=== PATIENT | female | born 1995 | race Caucasian/White ===

== ENCOUNTER 2017-04-26 12:17 | Emergency (ER) | payer OTHER ==
[~2017-04-26] VITALS: Ht 177.8 cm; Wt 92.1 kg
[~2017-04-26 12:17] MED LIST: BCPILLS PO
[2017-04-26 12:19] VITALS: Ht 177.8 cm; Wt 92.1 kg
[2017-04-26] MEDS ORDERED: SODIUM CHLORIDE 0.9% 1000ML 1,000 ML IV STA (12:38)
[2017-04-26 13:18] LABS: BASO % 0.1 %; BASO ABS # 0.01 K/uL (0-0.2); COMPLETE YES; HEMATOCRIT 35.3 % (37-47); IG% 0.1 %; LYMPH ABS # 1.02 K/uL (1.2-3.4); MEAN CELL VOLUME 83.5 fL (80-100); MEAN CORPUSCULAR HEMOGLOBIN 28.1 pg (25-34); MEAN CORPUSCULAR HGB CONC 33.7 g/dl (32-36); MEAN PLATELET VOLUME 9.7 fL (7.4-10.4); MONO % 9.7 %; NEUT % 77.1 %; PLATELET COUNT 233 K/uL (130-400); RED BLOOD COUNT 4.23 M/uL (4.2-5.4); WHITE BLOOD COUNT 7.83 K/uL (4.8-10.8)
--- NOTE | 2017-04-26 13:19 | EMERGENCY ROOM VISIT NOTE ---
History Report prepared by Kofi: Remy Guardado Under the Supervision of: Dr. Yunior Allen M.D. First contact with patient: 12:25 Chief Complaint: FLANK PAIN Stated Complaint: SIDE AND CHEST PAIN- SEVERE History of Present Illness The patient is a 21 year old female who presents to the Emergency Room with complaints of constant bilateral flank pain in her lower ribs that began two days ago in the setting of on and off pain for 2 years. She rates her pain a 2/ 10 in severity. She still has her gallbladder. The patient has a history of chest/upper abdominal pain associated with eating. However, it has never been this bad. Her pain is described as intermittent sharp pains and aches in the past, but it has been continuous recently. She had similarly severe symptoms 2 year ago. Her symptoms are exacerbated with eating or drinking. She was nauseated earlier this morning, but not currently. She notes that she felt "nails" in her mid chest yesterday but not currently. She denies any vomiting or abnormal urinary symptoms as well. Reports feverishness/chills. She is currently on control. Source of History: patient Onset: two days ago Position: other (Bilateral flank) Symptom Intensity: 2/10 Quality: ache, sharp Timing: intermittent Modifying Factors (Worsening): eating, drinking Associated Symptoms: + fevers, No nausea, No vomiting Review of Systems See HPI for pertinent positives and negatives. A total of ten systems were reviewed and were otherwise negative. Past Medical & Surgical Medical Problems: (1) Chronic back pain Family History Blood clots Social History Smoking Status: Never Smoker Smokeless Tobacco Use: No Drug Use: none Marital Status: single Occupation Status: student Current/Historical Medications Scheduled Control Pills ( Control Pills), 1 TAB PO DAILY Ondasetron Odt (Zofran Odt), 4 MG SL Q6H Scheduled PRN Famotidine (Pepcid), 20 MG PO BID PRN for Pain Allergies Coded Allergies: No Known Allergies (Unverified , 04/26/17) Physical Exam Vital Signs Date Time Temp Pulse Resp B/P (MAP) Pulse Ox O2 Delivery O2 Flow Rate FiO2 04/26/17 18:34 37.8 107 18 122/63 99 04/26/17 18:10 37.8 04/26/17 16:19 102 18 126/72 99 04/26/17 14:05 78 16 148/76 96 Room Air 04/26/17 12:19 37.8 110 17 122/72 98 Room Air Physical Exam GENERAL: Awake, alert, well-appearing, in no distress HENT: Normocephalic, atraumatic. Oropharynx with dry MM otherwise unremarkable. EYES: Normal conjunctiva. Sclera non-icteric. NECK: Supple. No nuchal rigidity. FROM. No JVD. RESPIRATORY: Clear to auscultation. CARDIAC: Regular rate, normal rhythm. Extremities warm and well perfused. Pulses equal. ABDOMEN: Soft, non-distended. No tenderness to palpation. No rebound or guarding. No masses. RECTAL: Deferred. MUSCULOSKELETAL: Chest examination reveals no tenderness. The back is symmetrical on inspection without obvious abnormality. There is no CVA tenderness to palpation. No joint edema. LOWER EXTREMITIES: Calves are equal size bilaterally and non-tender. No edema. No discoloration. NEURO: Normal sensorium. No sensory or motor deficits noted. SKIN: No rash or jaundice noted. Medical Decision & Procedures ER Provider Diagnostic Interpretation: Radiology results as stated below per my review and radiologist interpretation: CHEST ONE VIEW PORTABLE CLINICAL HISTORY: Chest pain. COMPARISON STUDY: Chest radiograph May 07, 2015. FINDINGS: Lung volumes are normal. No pneumothorax or pleural effusion is present. Pulmonary vascularity is normal. Cardiomediastinal silhouette is normal. The appearance of the chest is unchanged. No consolidation is identified. IMPRESSION: No acute cardiopulmonary findings. Electronically signed by: Bashir Morales M.D. 04/26/2017 1:53 PM Dictated Date/Time: 04/26/2017 1:52 PM CHEST CTA for PULMONARY ARTERIES CT DOSE: 293.60 mGy.cm HISTORY: Atypical chest pain. TECHNIQUE: Multiaxial CT images of the chest were performed following the intravenous administration of contrast to evaluate the pulmonary arteries. Maximal intensity projection images were also obtained. A dose lowering technique was utilized adhering to the principles of ALARA. COMPARISON STUDY: None. FINDINGS: There is a normal caliber thoracic aorta with no evidence for dissection. There is no evidence for pulmonary embolus. No pleural effusions. No pneumothorax. The liver and spleen are unremarkable. No lymphadenopathy. A single mildly enlarged distal left paraesophageal lymph node measuring 12 x 9 mm. The central airways are patent. The lungs are clear. IMPRESSION: No evidence for pulmonary embolus. A single mildly enlarged left paraesophageal lymph node. This is of uncertain clinical significance. Electronically signed by: Cecilio Irby M.D. 04/26/2017 3:39 PM Dictated Date/Time: 04/26/2017 3:30 PM Laboratory Results 04/26/17 13:00 Red Blood Count 4.23, Mean Corpuscular Volume 83.5, Mean Corpuscular Hemoglobin 28.1, Mean Corpuscular Hemoglobin Concent 33.7, Mean Platelet Volume 9.7, Neutrophils (%) (Auto) 77.1, Lymphocytes (%) (Auto) 13.0, Monocytes (%) (Auto) 9.7, Eosinophils (%) (Auto) 0.0, Basophils (%) (Auto) 0.1, Neutrophils # (Auto) 6.03, Lymphocytes # (Auto) 1.02, Monocytes # (Auto) 0.76, Eosinophils # (Auto) 0.00, Basophils # (Auto) 0.01 04/26/17 13:00 Test 04/26/17 13:00 04/26/17 13:25 04/26/17 13:30 White Blood Count 7.83 K/uL (4.8-10.8) Red Blood Count 4.23 M/uL (4.2-5.4) Hemoglobin 11.9 g/dL (12.0-16.0) Hematocrit 35.3 % (37-47) Mean Corpuscular Volume 83.5 fL (80-100) Mean Corpuscular Hemoglobin 28.1 pg (25-34) Mean Corpuscular Hemoglobin Concent 33.7 g/dl (32-36) Platelet Count 233 K/uL (130-400) Mean Platelet Volume 9.7 fL (7.4-10.4) Neutrophils (%) (Auto) 77.1 % Lymphocytes (%) (Auto) 13.0 % Monocytes (%) (Auto) 9.7 % Eosinophils (%) (Auto) 0.0 % Basophils (%) (Auto) 0.1 % Neutrophils # (Auto) 6.03 K/uL (1.4-6.5) Lymphocytes # (Auto) 1.02 K/uL (1.2-3.4) Monocytes # (Auto) 0.76 K/uL (0.11-0.59) Eosinophils # (Auto) 0.00 K/uL (0-0.5) Basophils # (Auto) 0.01 K/uL (0-0.2) RDW Standard Deviation 42.1 fL (36.4-46.3) RDW Coefficient of Variation 13.9 % (11.5-14.5) Immature Granulocyte % (Auto) 0.1 % Immature Granulocyte # (Auto) 0.01 K/uL (0.00-0.02) D-Dimer 870 ug/L FEU (0-500) Anion Gap 10.0 mmol/L (3-11) Est Creatinine Clear Calc Drug Dose 127.3 ml/min Estimated GFR () 111.9 Estimated GFR (Non- 96.6 BUN/Creatinine Ratio 9.8 (10-20) Calcium Level 8.8 mg/dl (8.5-10.1) Total Bilirubin 0.4 mg/dl (0.2-1) Direct Bilirubin mg/dl (0-0.2) Aspartate Amino Transf (AST/SGOT) 24 U/L (15-37) Alanine Aminotransferase (ALT/SGPT) 15 U/L (12-78) Alkaline Phosphatase 59 U/L (45-117) Total Protein 7.8 gm/dl (6.4-8.2) Albumin 3.3 gm/dl (3.4-5.0) Lipase 383 U/L (73-393) Chemistry Specimen Hemolysis Urine Color YELLOW Urine Appearance CLEAR (CLEAR) Urine pH 6.5 (4.5-7.5) Urine Specific [place] 1.022 (1.000-1.030) Urine Protein NEG (NEG) Urine Glucose (UA) NEG (NEG) Urine Ketones NEG (NEG) Urine Occult Blood TRACE (NEG) Urine Nitrite NEG (NEG) Urine Bilirubin NEG (NEG) Urine Urobilinogen NEG (NEG) Urine Leukocyte Esterase SMALL (NEG) Urine WBC (Auto) 5-10 /hpf (0-5) Urine RBC (Auto) 0-4 /hpf (0-4) Urine Hyaline Casts (Auto) 1-5 /lpf (0-5) Urine Epithelial Cells (Auto) >30 /lpf (0-5) Urine Bacteria (Auto) NEG (NEG) Urine Test NEG (NEG) Influenza Type A (RT-PCR) Neg for Influ A (NEG) Influenza Type A Antigen Neg for Influ A (NEG) Influenza Type B Antigen Neg for Influ B (NEG) Influenza Type B (RT-PCR) Neg for Influ B (NEG) Laboratory results reviewed by me Medications Administered Medications (Trade) Dose Ordered Sig/Kalpesh Route Start Time Stop Time Status Last Admin Dose Admin Sodium Chloride 1,000 ml @ 999 mls/hr Q1H1M STAT IV 04/26/17 12:38 04/26/17 13:38 DC 04/26/17 13:54 999 MLS/HR ED Course 1225: The patient was evaluated in room A9B. A complete history and physical exam was performed. 1238: Ordered Sodium Chloride 1000 ml @ 999 mls/hr IV 1247: I performed a bedside US at this time. It showed no pericholecystic fluid or gallstones. 1800: I reevaluated the patient. Discussed results and discharge instructions: She verbalized understanding and agreement. The patient is ready for discharge. Medical Decision I reviewed the patient's past medical history, medications, and the nursing notes as described above. Differential diagnoses include PNA, Bronchitis, Gastritis, Biliary etiology, PE , pericarditis, muscular strain, UTI, Pyelonephritis The patient is 21 y/o woman with pmhx of chronic back pain x 2 years who presents to the ED with c/o of persistence of this pain and single 1 minute episode of CP when ambulating yesterday per HPI. On arrival the patient is well appearing, afebrile with temp 37.8, VSS. Denying any sx in ED. EKG unremarkable with no OH depression or CARLY or signs of ischemia otherwise, thus pericarditis unlikely. Moreover patient has no cardiac risk factor making ACS not likely. D- dimer + in setting of OCP use. CT-PE done and negative for PE or other emergent findings otherwise. Single enlarge LN is nonspecific. Labs otherwise unremarkable. Findings d/w patient and a mother and reassurance that no signs of emergent process were identified at this time. Unclear cause of patient's sx , which have a peculiar pattern of b/l flank pain with eating and drinking. Sx possibly 2/2 muscular strain, gastritis, or early viral syndrome. Findings and plan for follow-up d/w patient and mother. Patient agreeable and d/c'd per discharge instructions. Medication Reconcilliation Current Medication List: was personally reviewed by me Blood Pressure Screening Patient's blood pressure: Normal blood pressure Blood pressure disposition: Did not require urgent referral Impression Primary Impression: Bilateral flank pain Scribe Attestation The scribe's documentation has been prepared under my direction and personally reviewed by me in its entirety. I confirm that the note above accurately reflects all work, treatment, procedures, and medical decision making performed by me. Departure Information Dispostion Home / Self-Care Prescriptions Famotidine (PEPCID) 20 Mg Tab 20 MG PO BID Y for Pain for 14 Days, #28 TAB Prov: Yunior Allen M.D. 04/26/17 Ondasetron Odt (ZOFRAN ODT) 4 Mg Tab 4 MG SL Q6H for Nausea, #6 TAB Prov: Yunior Allen M.D. 04/26/17 Referrals Petra Rosas C.R.N.P (PCP) Forms HOME CARE DOCUMENTATION FORM, IMPORTANT VISIT INFORMATION Patient Instructions ED Flank Pain Uncertain Cause, My [facility] Additional Instructions Please follow up with your primary care physician in the next 1-3 days for re- evaluation. Your CT scan showed a single mildly enlarged lymph node that is non-specific that should be discussed with your doctor but otherwise had no emergent findings. The cause of your symptoms are unclear at this time but may be due to muscular strain or gastritis/viral syndrome. Otherwise, your exam, EKG, chest xray, CT scan and lab results did not show signs of an emergent condition at this time. Zofran as needed for nausea, Pepcid as needed for abdominal pain associated with eating. Return to the emergency department for worsening symptoms as described in the accompanying instructions. CHEST CTA for PULMONARY ARTERIES CT DOSE: 293.60 mGy.cm HISTORY: Atypical chest pain. TECHNIQUE: Multiaxial CT images of the chest were performed following the intravenous administration of contrast to evaluate the pulmonary arteries. Maximal intensity projection images were also obtained. A dose lowering technique was utilized adhering to the principles of ALARA. COMPARISON STUDY: None. FINDINGS: There is a normal caliber thoracic aorta with no evidence for dissection. There is no evidence for pulmonary embolus. No pleural effusions. No pneumothorax. The liver and spleen are unremarkable. No lymphadenopathy. A single mildly enlarged distal left paraesophageal lymph node measuring 12 x 9 mm. The central airways are patent. The lungs are clear.
[2017-04-26 13:44] LABS: ALKALINE PHOSPHATASE 59 U/L (45-117); ALT/SGPT 15 U/L (12-78); AST/SGOT 24 U/L (15-37); BLOOD UREA NITROGEN 8 mg/dl (7-18); BUN/CREATININE RATIO 9.8 (10-20); CALCIUM 8.8 mg/dl (8.5-10.1); CARBON DIOXIDE 23 mmol/L (21-32); CHLORIDE 106 mmol/L (98-107); CREATININE 0.86 mg/dl (0.60-1.20); GLUCOSE 137 mg/dl (70-99); POTASSIUM 3.9 mmol/L (3.5-5.1); SODIUM 139 mmol/L (136-145)
[2017-04-26 13:49] LABS: URINE APPEARANCE CLEAR (CLEAR); URINE BILIRUBIN NEG (NEG); URINE COLOR YELLOW; URINE EPITHELIAL CELL AUTO >30 /lpf (0-5); URINE NITRITE NEG (NEG); URINE PH 6.5 (4.5-7.5); URINE SPECIFIC GRAVITY 1.022 (1.000-1.030); UROBILINOGEN NEG (NEG); ZZUR CULT IF INDIC CLEAN CATCH NO
[2017-04-26 13:51] LABS: MANUAL MICROSCOPIC REQUIRED? NO; REVIEW REQ? NO
--- NOTE | 2017-04-26 13:54 | DIAGNOSTIC IMAGING REPORT ---
CHEST ONE VIEW PORTABLE CLINICAL HISTORY: Chest pain. COMPARISON STUDY: Chest radiograph May 07, 2015. FINDINGS: Lung volumes are normal. No pneumothorax or pleural effusion is present. Pulmonary vascularity is normal. Cardiomediastinal silhouette is normal. The appearance of the chest is unchanged. No consolidation is identified. IMPRESSION: No acute cardiopulmonary findings. Electronically signed by: Bashir Morales M.D. 04/26/2017 1:53 PM Dictated Date/Time: 04/26/2017 1:52 PM
[2017-04-26] MEDS ORDERED: OPTIRAY 320 IV PRN (14:00)
--- NOTE | 2017-04-26 15:40 | DIAGNOSTIC IMAGING REPORT ---
CHEST CTA for PULMONARY ARTERIES CT DOSE: 293.60 mGy.cm HISTORY: Atypical chest pain. TECHNIQUE: Multiaxial CT images of the chest were performed following the intravenous administration of contrast to evaluate the pulmonary arteries. Maximal intensity projection images were also obtained. A dose lowering technique was utilized adhering to the principles of ALARA. COMPARISON STUDY: None. FINDINGS: There is a normal caliber thoracic aorta with no evidence for dissection. There is no evidence for pulmonary embolus. No pleural effusions. No pneumothorax. The liver and spleen are unremarkable. No lymphadenopathy. A single mildly enlarged distal left paraesophageal lymph node measuring 12 x 9 mm. The central airways are patent. The lungs are clear. IMPRESSION: No evidence for pulmonary embolus. A single mildly enlarged left paraesophageal lymph node. This is of uncertain clinical significance. Electronically signed by: Cecilio Irby M.D. 04/26/2017 3:39 PM Dictated Date/Time: 04/26/2017 3:30 PM
[2017-04-26 17:25] LABS: INFLUENZA A PCR Neg for Influ A (NEG); INFLUENZA B PCR Neg for Influ B (NEG)
[2017-04-26] MEDS ORDERED: FAMO20TA9 PO (17:57)
[2017-04-26] MEDS ORDERED: ONDA4TAB10 SL (17:57)
[2017-04-26 18:34] VITALS: BP 122/63; PULSE 107; TEMP 37.8; O2SAT 99
== END 2017-04-26 18:25 | disposition home or self-care (01) ==
LOC: C.EDB 12:19 → C.EDA 18:25
DX: R10.9 Unspecified abdominal pain (principal)